=== PATIENT | female | born 1980 | race Asian ===

== ENCOUNTER 2020-08-22 20:12 | Observation (INO) | payer OTHER ==
[~2020-08-22] VITALS: Ht 165.1 cm; Wt 81.7 kg
[~2020-08-22 20:12] MED LIST: ALBU90OI INH; AMOCLA875 PO; FLUT.05NI; MULT50L PO
[2020-08-22] MEDS ORDERED: MOBIC15 MG PO (20:36)
[2020-08-22] MEDS ORDERED: DULOXETINE HCL60 MG PO (20:36)
[2020-08-22] MEDS ORDERED: GABA300 PO (20:37)
[2020-08-22] MEDS ORDERED: Oxybutynin Chlo15 MG PO (20:39)
[2020-08-22] MEDS ORDERED: ACYC400 PO (20:40)
[2020-08-22] MEDS ORDERED: HYDHCL25 PO (20:41)
[2020-08-22 20:51] LABS: BASOPHILS ABSOLUTE AUTO 0.06 K/mm3 (0.00-0.23); BASOPHILS PERCENT AUTO 1 % (0-2); EOSINOPHILS ABSOLUTE AUTO 0.26 K/mm3 (0.00-0.68); EOSINOPHILS PERCENT AUTO 2 % (0-6); Hematocrit 43.6 % (33.0-51.0); Hemoglobin 14.7 g/dL (11.5-16.0); IMMATURE GRAN ABSOLUTE AUTO 0.11 K/mm3 (0.00-0.10); IMMATURE GRAN PERCENT AUTO 1 % (0-1); LYMPHOCYTES ABSOLUTE AUTO 3.46 K/mm3 (0.84-5.20); LYMPHOCYTES PERCENT AUTO 30 % (21-46); MONOCYTES ABSOLUTE AUTO 0.42 K/mm3 (0.16-1.47); MONOCYTES PERCENT AUTO 4 % (4-13); Mean Corpuscular HGB 30.7 pg (26.0-34.0); Mean Corpuscular HGB Conc 33.7 g/dL (31.5-36.5); Mean Corpuscular Volume 91 fL (80-100); Mean Platelet Volume 10.2 fL (9.1-12.4); NEUTROPHILS ABSOLUTE AUTO 7.35 K/mm3 (1.96-9.15); NEUTROPHILS PERCENT AUTO 63 % (41-73); Platelet Count 339 K/mm3 (150-400); RDW Coefficient Variation 12.6 % (11.7-14.2); RDW Standard Deviation 42.3 fL (35.1-46.3); Red Blood Cell Count 4.79 M/mm3 (3.80-5.20); White Blood Cell Count 11.66 K/mm3 (4.00-11.30)
[2020-08-22 21:09] LABS: Ethanol (Alcohol), Blood, Med <3 mg/dL; Salicylate <1.7 mg/dL (2.8-20.0)
[2020-08-22 21:10] LABS: Acetaminophen, Random <2.0 ug/mL (10.0-30.0); Alanine Aminotransfer (ALT/SGP 68 U/L (12-78); Albumin, Blood 3.7 g/dL (3.4-5.0); Albumin/Globulin Ratio 0.9 (0.8-1.8); Alk Phos 125 U/L (50-136); Anion Gap 8 mmol/L (6-16); Aspartate Aminotrans (AST/SGOT 58 U/L (12-37); Bilirubin, Total 0.2 mg/dL (0.1-1.0); Blood Urea Nitrogen 12 mg/dL (8-24); Bun/Creatinine Ratio 19.3 (12.0-20.0); CO2, Blood 22 mmol/L (21-32); Calcium, Blood 8.7 mg/dL (8.5-10.1); Chloride, Blood 106 mmol/L (98-108); Creatinine, Blood 0.62 mg/dL (0.40-1.00); Globulin, Blood 4.2 g/dL (2.2-4.0); Glomerular Filtration Rate >60 (60-); Glucose, Blood 148 mg/dL (70-99); Potassium, Blood 3.7 mmol/L (3.5-5.5); Sodium, Blood 136 mmol/L (136-145); Total Protein, Blood 7.9 g/dL (6.4-8.2)
[2020-08-22 22:38] LABS: Source, Urine Clean Catch
[2020-08-22 22:40] LABS: Bilirubin, Urine Neg (Neg); Blood, Urine Neg (Neg); Glucose Qualitative, Urine Neg (Neg); Ketones, Urine Neg (Neg); Leukocyte Esterase, Urine Neg (Neg); Nitrite, Urine Neg (Neg); Protein, Urine 3+ (Neg); Specific Gravity, Urine 1.015 (1.003-1.022); Urobilinogen, Urine NORM (Normal)
[2020-08-22 22:43] LABS: Appearance, Urine Clear (Clear); Color, Urine Yellow (P-Yellow)
[2020-08-22 22:49] LABS: U Amphetamine Screen Not Detected; U Barbituate Screen Not Detected; U Benzodiazapine Screen Not Detected; U Buprenorphine Screen Not Detected; U Cannabinoids Screen DETECTED; U Cocaine Screen Not Detected; U Methadone Screen Not Detected; U Methamphetamine Screen Not Detected; U Opiates Screen Not Detected; U Oxycodone Screen Not Detected; U Phencyclidine Screen Not Detected; U Propoxyphene Screen Not Detected
[2020-08-22 22:53] LABS: Bacteria Rare /hpf; Red Blood Cells, Urine Not Seen /hpf (0-2); Squamous Epithelial Cells Few /hpf (Few); White Blood Cells, Urine Rare /hpf (0-5)
[2020-08-24] MEDS ORDERED: DULO60 PO (09:20)
== END 2020-08-23 09:07 | disposition home or self-care (01) ==
LOC: ER 20:12 → EOR 20:13
PROVIDERS: Physician Assistant; ADMIT Emergency Medicine
DX: F43.25 Adjustment disorder with mixed disturbance of emotions and conduct (principal); S51.812A Laceration without foreign body of left forearm, initial encounter; X78.1XXA Intentional self-harm by knife, initial encounter; Z79.899 Other long term (current) drug therapy
CPT/HCPCS: 12002; 80053; 81001; 81025; 85025; 90471; 90714; 93005; 93010; 99285-25; A9270; G0378; G0480; J7030; Q3014

== ENCOUNTER 2020-08-23 14:26 | Observation (INO) | payer OTHER ==
[~2020-08-23] VITALS: Ht 165.1 cm; Wt 81.7 kg
[~2020-08-23 14:26] MED LIST changes: +ACYC400 PO; +DULOXETINE HCL60 MG PO; +GABA300 PO; +HYDHCL25 PO; +MOBIC15 MG PO; +Oxybutynin Chlo15 MG PO
[2020-08-23 18:24] LABS: SARS-Cov-2 (COVID-19) PCR, MMC NEGATIVE (NEGATIVE)
[2020-08-24] MEDS ORDERED: DULO60 PO (09:20)
== END 2020-08-24 11:13 | disposition home or self-care (01) ==
LOC: ER 14:26 → EOR 14:27
PROVIDERS: Emergency Medicine; ADMIT Emergency Medicine
DX: F32.9 Major depressive disorder, single episode, unspecified (principal); Z20.822 Contact with and (suspected) exposure to COVID-19
CPT/HCPCS: 99285; A9270; G0378; U0004

== ENCOUNTER → 2021-04-29 | Outpatient (CLI) | payer OTHER ==
[~2021-04-29] MED LIST changes: +DULO60 PO
[2021-04-30 12:52] LABS: Candida species (DNA Probe) Negative (NEGATIVE); G. vaginalis (DNA Probe) Negative (NEGATIVE); T. vaginalis (DNA Probe) Negative (NEGATIVE)
[2021-05-03 15:10] LABS: HPV 16 Negative (Negative); HPV 18 Negative (Negative); HPV OTHER HR TYPES Positive (Negative)
== END | disposition home or self-care (01) ==
LOC: LAB SHORT 17:46
PROVIDERS: Nurse Practitioner Family
DX: Z12.4 Encounter for screening for malignant neoplasm of cervix (principal)
CPT/HCPCS: 87480; 87510; 87624; 87625; 87660; G0123

== ENCOUNTER → 2022-06-02 | Outpatient (CLI) | payer OTHER ==
[2022-06-03 14:51] LABS: Candida species (DNA Probe) Negative (NEGATIVE); G. vaginalis (DNA Probe) Positive (NEGATIVE); T. vaginalis (DNA Probe) Negative (NEGATIVE)
[2022-06-07 11:11] LABS: HPV 16 Negative (Negative); HPV 18 Negative (Negative); HPV OTHER HR TYPES Positive (Negative)
== END | disposition home or self-care (01) ==
LOC: LAB 18:50 → LAB SHORT 18:50
PROVIDERS: Nurse Practitioner Family
DX: Z11.51 Encounter for screening for human papillomavirus (HPV) (principal); Z12.4 Encounter for screening for malignant neoplasm of cervix; N89.8 Other specified noninflammatory disorders of vagina
CPT/HCPCS: 87480; 87510; 87624; 87625; 87660; G0145

== ENCOUNTER → 2022-09-01 | Outpatient (CLI) | payer OTHER | END | disposition home or self-care (01) | LOC: LAB SHORT 10:42 → PLD 10:42 | DX: R87.618 Other abnormal cytological findings on specimens from cervix uteri (principal) | CPT/HCPCS: 88305 ==

== ENCOUNTER → 2024-10-08 | Outpatient (CLI) | payer OTHER ==
[2024-10-09 13:40] LABS: Bacterial Vaginosis PCR Negative (NEGATIVE); Candida Group, PCR NOT DETECTED (NOT DETECT); Candida glabrata-krusei, PCR NOT DETECTED (NOT DETECT)
== END | disposition home or self-care (01) ==
LOC: LAB 15:18 → LAB SHORT 15:18
PROVIDERS: Advanced Practice Midwife
DX: Z01.419 Encounter for gynecological examination (general) (routine) without abnormal findings (principal); N76.0 Acute vaginitis
CPT/HCPCS: 81515; 87624; G0123